=== PATIENT | female | born 1985 | race American Indian/Alaskan Native ===

== ENCOUNTER 2017-11-29 10:18 | Emergency (ER) | payer MEDICAID ==
[2017-11-29 10:30] VITALS: BP 136/89
[2017-11-29 14:54] LABS: Bacteria,Urine 1+ /HPF (Negative); Bilirubin,Urine NEG (Negative); Blood,Urine NEG (Negative); Color,Urine Yellow (Yellow); Mucus,Urine 2+ /HPF; Protein,Urine <15 mg/dL mg/dL (Negative); Urobilinogen,Urine < 2.0 mg/dL (<2.0)
[2017-11-29 16:03] LABS: BUN/Creatinine Ratio 14; Blood Urea Nitrogen 10 mg/dL (7-17); Calcium 8.8 mg/dL (8.4-10.2); Hemolysis Index 8
[2017-11-29 16:06] LABS: Amphetamine Screen,Urine PRESUMPTIVE NEGATIVE; Benzodiazepines Screen,Urine PRESUMPTIVE NEGATIVE; Cannabinoid Screen,Urine PRESUMPTIVE NEGATIVE; Cocaine Screen,Urine PRESUMPTIVE NEGATIVE; Methadone Screen,Urine PRESUMPTIVE NEGATIVE; Opiate Screen,Urine PRESUMPTIVE NEGATIVE
[2017-11-29 17:07] LABS: Basophils % (Auto) 0.3 % (0.0-1.8); Eosinophils % (Auto) 0.4 % (0.0-4.3); Hematocrit 37.2 % (30.3-42.9); Hemoglobin 12.2 gm/dl (10.1-14.3); Lymphocytes # (Auto) 1.9 K/mm3 (1.2-5.4); Lymphocytes % (Auto) 26.2 % (13.4-35.0); Mean Corpuscular HGB Conc 33 % (30-34); Mean Corpuscular Hemoglobin 28 pg (28-32); Mean Corpuscular Volume 86 fl (79-97); Monocytes # (Auto) 0.4 K/mm3 (0.0-0.8); Monocytes % (Auto) 5.4 % (0.0-7.3); Platelet Count 278 K/mm3 (140-440); Red Blood Count 4.34 M/mm3 (3.65-5.03)
== END 2017-11-29 20:27 | disposition left against medical advice (07) ==
LOC: ED 10:18
DX: R45.851 Suicidal ideations (principal); Z53.21 Procedure and treatment not carried out due to patient leaving prior to being seen by health care provider
CPT/HCPCS: 36415; 80048; 80307; 81001; 84703; 85025; G0480; 80320

== ENCOUNTER 2021-07-04 16:05 | Outpatient (CLI) | payer OTHER ==
[2021-07-04 17:03] LABS: Basophils % (Auto) 0.5 % (0.0-1.8); Eosinophils # (Auto) 0.1 K/mm3 (0.0-0.4); Eosinophils % (Auto) 0.8 % (0.0-4.3); Hematocrit 37.1 % (30.3-42.9); Hemoglobin 12.6 gm/dl (10.1-14.3); Lymphocytes # (Auto) 2.5 K/mm3 (1.2-5.4); Lymphocytes % (Auto) 28.1 % (13.4-35.0); Mean Corpuscular HGB Conc 34 % (30-34); Mean Corpuscular Volume 88 fl (79-97); Monocytes # (Auto) 0.4 K/mm3 (0.0-0.8); Monocytes % (Auto) 4.2 % (0.0-7.3); Platelet Count 274 K/mm3 (140-440); Red Blood Count 4.23 M/mm3 (3.65-5.03); Red Cell Distribution Width 13.4 % (13.2-15.2)
[2021-07-04 19:21] LABS: Alanine Aminotransferase 14 units/L (7-56); Albumin 4.3 g/dL (3.9-5); BUN/Creatinine Ratio 14; Blood Urea Nitrogen 11 mg/dL (7-17); Calcium 9.6 mg/dL (8.4-10.2); Chol/HDL Ratio 5.86 %; HDL Cholesterol 37 mg/dL (40-59); Hemolysis Index 3; Iron 28 ug/dL (37-170); LDL Cholesterol,Direct 128 mg/dL (50-130); Total Iron Binding Capacity 344 mcg/dL (250-450)
[2021-07-08 14:56] LABS: Vitamin D, 25-OH, D2 <4 ng/mL
== END 2021-07-04 16:06 | disposition home or self-care (01) ==
LOC: LAB 16:05
PROVIDERS: ATTEND Surgery
DX: Z01.812 Encounter for preprocedural laboratory examination (principal); Z13.1 Encounter for screening for diabetes mellitus; E55.9 Vitamin D deficiency, unspecified; K30 Functional dyspepsia; E66.01 Morbid (severe) obesity due to excess calories
CPT/HCPCS: 36415; 80053; 80061; 82306; 82607; 82728; 83036; 83550; 84443; 85025; 85730

== ENCOUNTER 2021-11-25 11:00 | Outpatient (CLI) | payer OTHER | END 2021-11-25 11:01 | disposition home or self-care (01) | LOC: SLR 11:00 | PROVIDERS: ATTEND Surgery | DX: G47.33 Obstructive sleep apnea (adult) (pediatric) (principal) | CPT/HCPCS: 95810 ==

== ENCOUNTER 2021-11-29 06:39 | Day surgery (SDC) | payer OTHER ==
[2021-11-29] MEDS ORDERED: SODIUM CHLORIDE 0.9% 1000 ML 1,000 ML IV SCH (07:00)
[2021-11-29] MEDS ORDERED: WATER FOR IRRIG STERILE 1,000 ML BOTTLE ONE (07:07)
[2021-11-29] MEDS ORDERED: WATER FOR IRRIG STERILE 250 ML BOTTLE IR ONE (07:07)
--- NOTE | 2021-11-29 07:48 | Anesthesia Day of Surgery ---
Anesthesia Day of Surgery - Day of Surgery Patient Examined: Yes Patient H&P Reviewed: Yes Patient is NPO: Yes
--- NOTE | 2021-11-29 07:48 | Anesthesia Consultation ---
Anesthesia Consult and Med Hx - Airway Anesthetic Teeth Evaluation: Good ROM Head & Neck: Adequate Mental/Hyoid Distance: Adequate Mallampati Class: Class I Intubation Access Assessment: Good - Pulmonary Exam CTA: Yes - Cardiac Exam Cardiac Exam: RRR - Pre-Operative Health Status ASA Pre-Surgery Classification: ASA3 Proposed Anesthetic Plan: MAC - Pulmonary Hx Smoking: No Hx Asthma: No Hx Sleep Apnea: Yes - Cardiovascular System Hx Hypertension: Yes - Central Nervous System Hx Neuromuscular Disorder: No - Gastrointestinal Hx Gastroesophageal Reflux Disease: Yes - Endocrine Hx Renal Disease: No Hx Liver Disease: No Hx Non-Insulin Dependent Diabetes: No (prediabetes - no meds) Hx Hypothyroidism: Yes - Hematic Hx Anemia: No Hx Sickle Cell Disease: No - Other Systems Hx Alcohol Use: No Hx Substance Use: No Hx Cancer: No Hx Obesity: Yes - Additional Comments Anesthesia Medical History Comments: no hx of anesthetic complications
--- NOTE | 2021-11-29 08:17 | Discharge Summary ---
Providers - Providers Date of Admission: 11/29/2021 Date of discharge: 11/29/21 Attending physician: HOWARD STALLINGS MD Primary care physician: HEYDI SHRESTHA Hospitalization Reason for admission: pre-op egd Condition: Good Procedures: egd w/ bx Hospital course: Pt presented for a pre-op EGD as part of planning for up coming bariatric surgery. Procedure was uneventful and pt recovered well and was discharged to home. Disposition: 01 HOME / SELF CARE / HOMELESS Final Discharge Diagnosis (Prints w/discharge instructions): morbid obesity, gerd Core Measure Documentation - Palliative Care Palliative Care/ Comfort Measures: Not Applicable - Core Measures Any of the following diagnoses?: none Exam - Physical Exam Narrative exam: unchanged from pre-op Plan Activity: advance as tolerated Diet: low carbohydrate Follow up with: HEYDI SHRESTHA MD [Primary Care Provider] - 7 Days
--- NOTE | 2021-11-29 08:19 | Operative Report ---
Operative Report Operative Report: DATE: 11/29/2021 SURGERY: Upper endoscopy. SURGEON: Nivia Patel M.D. PROCEDURE: EGD with biopsy PRE OP DX: morbid obesity, GERD POST OP DX: morbid obesity, GERD TYPE OF ANESTHESIA: MAC. ESTIMATED BLOOD LOSS: None. COMPLICATIONS: None. SPECIMENS REMOVED: antral biopsy FINDINGS: 1. Small hiatal hernia. 2. mild antral gastritis INDICATIONS:INDICATION FOR PROCEDURE: Patient is a 36-year-old female with a long history of morbid obesity. She is planned to have a weight loss procedure and is here for preoperative planning EGD. PROCEDURE DETAILS: After consent was reviewed, patient was taken back to the operating room where patient was placed in the left lateral decubitus position and a bite block was placed in the mouth. After a time-out was called, MAC anesthesia was initiated. I then passed the endoscope into her oropharynx, into her esophagus, visualized the entire esophagus, which was all within normal limits. Z-line was noted to about 35cm from incisors. I then visualized the stomach and the first portion of the duodenum and there were no abnormalities I could clearly visualize except for antral gastritis. A cold forceps biopsy of the antrum was taken and will be sent to pathology to evaluate for H.pylori. I then retroflexed the scope in the stomach and visualized the hiatus and I could see a small hiatal hernia. I then desufflated the stomach and removed the endoscope. Patient tolerated procedure well and was transferred to recovery room in good and stable condition.
[2021-11-29] MEDS ORDERED: propofoL 200 MG/20 ML VIAL IV ONE (08:31)
[2021-11-29] MEDS ORDERED: LIDOCAINE MPF (2%) 20 MG/1 ML VIAL 5 ML ONE (08:31)
--- NOTE | 2021-11-29 13:37 | Post Anesthesia Evaluation ---
- Post Anesthesia Evaluation Patient Participated: Yes Airway Patent: Yes Stable Respiratory Function: Yes Nausea/Vomiting: No Temp > 96.8F: Yes Pain Manageable: Yes Adequeate Hydration: Yes Anesthesia Complications: No Block Receding Appropriately: Not Applicable Patient on Ventilator: No
[2021-11-29 14:03] VITALS: BP 111/66
== END 2021-11-29 09:30 | disposition home or self-care (01) ==
LOC: GIO 06:39
PROVIDERS: ATTEND Surgery
DX: K21.9 Gastro-esophageal reflux disease without esophagitis (principal); E66.01 Morbid (severe) obesity due to excess calories; K30 Functional dyspepsia; K44.9 Diaphragmatic hernia without obstruction or gangrene; K29.70 Gastritis, unspecified, without bleeding; K31.89 Other diseases of stomach and duodenum; I10 Essential (primary) hypertension; G47.30 Sleep apnea, unspecified; E11.9 Type 2 diabetes mellitus without complications; E03.9 Hypothyroidism, unspecified; F32.9 Major depressive disorder, single episode, unspecified; F41.9 Anxiety disorder, unspecified; Z88.2 Allergy status to sulfonamides; Z79.899 Other long term (current) drug therapy; Z68.41 Body mass index [BMI] 40.0-44.9, adult
CPT/HCPCS: 43239; 81025; 88305; 88342; J2704; J3490; J7030; J7120; Q0162

== ENCOUNTER 2022-03-03 13:16 | Outpatient (CLI) | payer OTHER ==
--- NOTE | 2021-11-02 09:35 | Fluoroscopy Report ---
BARIUM SWALLOW Indication: MORBID OBESITY. Technique: Single contrast barium technique utilized to evaluate the esophagus. FINDINGS: To begin the exam, swallowing was evaluated in the lateral position under direct fluorosco py. Swallowing was normal. No mucosal irregularity, mass, mass effect, or critical stenosis. There were no abnormal tertiary c ontractions as seen with dysmotility. A small sliding hiatal hernia measuring 2-3 cm in diameter was occasionally witnessed during this exam. No evidence for gastroesophageal reflux. IMPRESSION: Small sliding hiatal hernia, otherwise, unremarkable exam. Fluoroscopic time: 1.5 minutes Number of fluoroscopic images: 33 Signer Name: Haris Lyn Jr, MD Signed: 11/02/2021 9:30 AM Workstation Name: [id number]
[2022-03-03 14:33] LABS: Basophils % (Auto) 0.5 % (0.0-1.8); Eosinophils % (Auto) 0.4 % (0.0-4.3); Hematocrit 40.4 % (30.3-42.9); Hemoglobin 13.3 gm/dl (10.1-14.3); Lymphocytes # (Auto) 2.2 K/mm3 (1.2-5.4); Lymphocytes % (Auto) 29.2 % (13.4-35.0); Mean Corpuscular HGB Conc 33 % (30-34); Mean Corpuscular Volume 89 fl (79-97); Monocytes # (Auto) 0.4 K/mm3 (0.0-0.8); Monocytes % (Auto) 5.2 % (0.0-7.3); Red Blood Count 4.56 M/mm3 (3.65-5.03); Red Cell Distribution Width 13.3 % (13.2-15.2)
[2022-03-03 14:52] LABS: Amphetamine Screen,Urine Negative; Benzodiazepines Screen,Urine Negative; Cannabinoid Screen,Urine Negative; Cocaine Screen,Urine Negative; Methadone Screen,Urine Negative; Opiate Screen,Urine Negative
[2022-03-03 14:56] LABS: Alanine Aminotransferase 20 units/L (7-56); Albumin 4.4 g/dL (3.9-5); Blood Urea Nitrogen 12 mg/dL (7-17); Calcium 9.4 mg/dL (8.4-10.2); Hemolysis Index 3; Iron 59 ug/dL (37-170); Total Iron Binding Capacity 341 mcg/dL (250-450)
[2022-03-03 15:20] LABS: BUN/Creatinine Ratio 17
[2022-03-03 15:21] LABS: Platelet Count 310 K/mm3 (140-440)
[2022-03-03 15:25] LABS: HCG Qualitative,Urine Negative (Negative)
== END 2022-03-03 13:17 | disposition home or self-care (01) ==
LOC: FLUORO 13:16
PROVIDERS: ATTEND Surgery
DX: K44.9 Diaphragmatic hernia without obstruction or gangrene (principal); E66.01 Morbid (severe) obesity due to excess calories; E55.9 Vitamin D deficiency, unspecified
CPT/HCPCS: 36415; 74220; 80053; 80307; 81025; 82607; 82652; 82728; 83036; 83550; 84443; 85025; 85730

== ENCOUNTER 2022-03-10 13:05 | Outpatient (CLI) | payer OTHER ==
[2022-03-10 13:50] LABS: INR 0.88 (0.87-1.13); Partial Thromboplastin Time 28.1 Sec. (24.2-36.6)
== END 2022-03-10 13:06 | disposition home or self-care (01) ==
LOC: LAB 13:05
PROVIDERS: ATTEND Surgery
DX: R79.1 Abnormal coagulation profile (principal); E66.01 Morbid (severe) obesity due to excess calories
CPT/HCPCS: 36415; 85610; 85730

== ENCOUNTER 2022-04-10 08:59 | Inpatient (IN) | payer OTHER ==
[2022-04-05 10:02] LABS: Hematocrit 38.4 % (30.3-42.9); Hemoglobin 12.8 gm/dl (10.1-14.3); Mean Corpuscular HGB Conc 33 % (30-34); Mean Corpuscular Volume 88 fl (79-97); Platelet Count 263 K/mm3 (140-440); Red Blood Count 4.37 M/mm3 (3.65-5.03); Red Cell Distribution Width 13.3 % (13.2-15.2)
[2022-04-05 10:11] LABS: INR 0.93 (0.87-1.13)
--- NOTE | 2022-04-05 10:20 | Anesthesia Consultation ---
Anesthesia Consult and Med Hx Date of service: 04/10/22 - Airway Anesthetic Teeth Evaluation: Good ROM Head & Neck: Adequate Mental/Hyoid Distance: Adequate Mallampati Class: Class II Intubation Access Assessment: Probably Good - Pulmonary Exam CTA: Yes - Cardiac Exam Cardiac Exam: RRR - Pre-Operative Health Status ASA Pre-Surgery Classification: ASA3 Proposed Anesthetic Plan: General - Pulmonary Hx Smoking: No Hx Respiratory Symptoms: No Hx Sleep Apnea: No (negative sleep study) - Cardiovascular System Hx Hypertension: Yes Hx Heart Attack/AMI: No (normal stress test) - Central Nervous System CVA: No Hx Back Pain: Yes Hx Psychiatric Problems: Yes (anxiety/depression) - Gastrointestinal Hx Gastroesophageal Reflux Disease: Yes - Endocrine Hx Renal Disease: No Hx Liver Disease: No Hx Insulin Dependent Diabetes: No Hx Non-Insulin Dependent Diabetes: No (pre-DM (no meds)) Hx Hyperthyroidism: Yes - Other Systems Hx Obesity: Yes (BMI 41.5) - Additional Comments Anesthesia Medical History Comments: No hx anesthetic complications. Preop sleep study and stress test reviewed. Patient reports having preop EKG done and this is referenced in medical eval note; EKG requested. Otherwise, may need DOS EKG if not found.
[2022-04-05 10:23] LABS: Alanine Aminotransferase 15 units/L (7-56); Albumin 4.2 g/dL (3.9-5); Blood Urea Nitrogen 16 mg/dL (7-17); Calcium 9.2 mg/dL (8.4-10.2); Hemolysis Index 9
[2022-04-05 10:47] LABS: BUN/Creatinine Ratio 23
[~2022-04-10 08:59] MED LIST: ACETAMINOPHEN IV 1,000 MG/100 ML BOTTLE IV NR; ENOXAPARIN 40 MG/0.4 ML INJ SUB-Q NR; GABAPENTIN 500 MG/10 ML ORAL LIQD PO NR; LACTATED RINGERS 1,000 ML IV SCH; MIDAZOLAM 2 MG/2 ML INJ IV NR; SCOPOLAMINE TRANSDERMAL PATCH 72 HR TD NR; methOCARBAMOL 1,000 MG in SODIUM CHLORIDE 0.9% 250ML 250 ML IV SCH; metroNIDAZOLE/NS 500 MG/100 ML 500 MG/100 ML BAG IV NR
[2022-04-10] MEDS ORDERED: ENOXAPARIN 40 MG/0.4 ML INJ SUB-Q ONE (10:20)
--- NOTE | 2022-04-10 10:50 | Anesthesia Day of Surgery ---
Anesthesia Day of Surgery - Day of Surgery Patient Examined: Yes Patient H&P Reviewed: Yes Patient is NPO: Yes
[2022-04-10] MEDS ORDERED: HYDROmorphone 0.5 MG/0.5 ML INJ IV PRN ×4 (11:00→16:01)
[2022-04-10] MEDS ORDERED: ONDANSETRON 4 MG/2 ML INJ IV PRN (11:00)
[2022-04-10] MEDS ORDERED: MAGNESIUM SULFATE 4 GM/100 ML BAG IV ONE (13:17)
[2022-04-10] MEDS ORDERED: LIDOCAINE 2%/EPINEPHRINE 1:200,000 VIAL (20 ML) INFILTRATI ONE (13:19)
[2022-04-10] MEDS ORDERED: BUPIVACAINE/PF (0.25%) 2.5 MG/ML 30 ML VIAL INFILTRATI ONE ×2 (13:19→14:42)
[2022-04-10] MEDS ORDERED: LIDOCAINE MPF (2%) 20 MG/1 ML VIAL 5 ML ONE (13:25)
[2022-04-10] MEDS ORDERED: ONDANSETRON 4 MG/2 ML INJ ONE (13:25)
[2022-04-10] MEDS ORDERED: SODIUM CHLORIDE P/F VIAL 10 ML 10 ML ONE (13:25)
[2022-04-10] MEDS ORDERED: ROCURONIUM 50 MG/5 ML INJ IV ONE (13:25)
[2022-04-10] MEDS ORDERED: KETAMINE/STERILE WATER 50 MG/ML SYRINGE ONE (13:31)
[2022-04-10] MEDS ORDERED: metroNIDAZOLE/NS 500 MG/100 ML 500 MG/100 ML BAG IV ONE (13:42)
[2022-04-10] MEDS ORDERED: SODIUM CHLORIDE 0.9% IRR 1,500 ML BOTTLE IR ONE (14:42)
[2022-04-10] MEDS ORDERED: LIDOCAINE 2%/EPINEPHRINE 1:100,000 VIAL (20 ML) INFILTRATI ONE (14:42)
[2022-04-10] MEDS ORDERED: SODIUM CHLORIDE 0.9% IRRIG SOLN 2000 ML IR ONE (15:02)
[2022-04-10] MEDS ORDERED: hydrALAZINE 20 MG/1 ML INJ IV PRN (16:01)
[2022-04-10] MEDS ORDERED: METOCLOPRAMIDE 10 MG/2 ML INJ IV PRN (16:01)
[2022-04-10] MEDS ORDERED: LACTATED RINGERS 1,000 ML IV SCH (16:15)
--- NOTE | 2022-04-10 16:23 | Operative Report ---
Operative Report Operative Report: DATE:04/10/2022 Surgeon: Nivia Patel MD [employer] surgeon: Ray Barry CSA MD Pre-op Dx: morbid obesity Post-op Dx: morbid obesity Procedure: 1. laparoscopic sleeve gastrectomy, Anesthesia: GETA, TAP block EBL: <10ml Specimen: gastric remnant Complication: none immediate Indication: 36 year old female with a history of morbid obesity . Pt is here for sleeve gastrectomy for weight loss to achieve healthier weight and improve or resolve her co-morbidities. She expressed understanding of the risks and benefits. PROCEDURE IN DETAIL: After consent was reviewed, patient was taken back to the operating room, where patient was placed supine on the bed with both arms out. The patient's legs were doubly strapped to the bed. Patient had a foot board in place. Patient had a body warmer placed by anesthesia. General anesthesia was induced with successful endotracheal intubation. Patient was then prepped and draped in normal sterile surgical fashion. After a time-out was called, I made a stab incision in the left subcostal area and placed a Veress needle through this incision and insufflated the abdomen to 15 mmHg pressure. I then counted down a handsbreadth below the xiphoid process in the midline and slightly left lateral injected local anesthetic and made about 1 cm transverse incision. I then used a 5-mm Optiview trocar to enter into the abdomen. There was no gross injury to any intra-abdominal structures. I then placed a 30-degree scope through this port and inspected the abdomen. I then placed a 5-mm port in the right upper quadrant, and 1 epigastric area below the costovertebral angle. I then placed a 15-mm port about a handsbreadth in the right mid abdomen. After which a 5mm port was placed in left upper quadrant port along the anterior axillary line in a similar fashion. A liver retractor was placed to the epigastric port to elevate the left lateral lobe and liver. The anterior gastric fat pad was excised. Starting approximately 6 cm proximal to the pylorus, using a Enseal device the short gastrics were taken all the way to the left justo. Once the lateral portion of the stomach was mobile anesthesia passed a 40 Turkmen bougie along the medial aspect to act as a stent. Using serial firings of endoscopic stapler to gold, followed by 4 blue, the lateral portion of the stomach was transected making sure to did not close to the 2 cm to the incisura. All staple loads were supported with Ethicon buttress strips. The sleeve stomach was seen to be witho ut kink obstruction or twisting. The pressure was decreased to 10 mmHg. The staple line was inspected for approximately 5 minutes. There was an area of staple line at the location of the second staple fire that was more oozy than usual and appeared to have a jagged edge. That area was oversewn with surgiddac. An air leak test was performed with an endoscope and was negative for leak. Vistaseal was then sprayed along the entirety of the staple line. The liver retractor was removed. This was after the gastric remnant was grasped and pulled into the 15 mm trocar site. The stomach was extracted via the 15 mm trocar site. After the fascia had to be stretched with a Lida clamp to easily remove the stomach, the fascia was closed using a michael brock device at the level of the fascia with an 0 PDS. trocars were removed under direct visualization. A TAP block was performed in transverse abdominis plane at the mid axillary line bilaterally using 60cc of 0.25% marcaine. All skin incisions were closed with 4-0 Monocryl followed by Dermabond. Patient was awoken, extubated, and taken to recovery stable condition. All counts were correct.
[2022-04-10] MEDS: KETOROLAC 30 MG/1 ML INJ IV SCH ×2 (16:45→23:25)
[2022-04-10] MEDS: SIMETHICONE 80 MG CHEW TAB PO PRN (16:45)
[2022-04-10] MEDS: PANTOPRAZOLE 40 MG INJ IV SCH (16:45)
[2022-04-10] MEDS: ONDANSETRON 4 MG/2 ML INJ IV PRN (16:45)
[2022-04-10] MEDS ORDERED: metroNIDAZOLE/NS 500 MG/100 ML 500 MG/100 ML BAG IV SCH (17:00)
[2022-04-10] MEDS ORDERED: ceFAZolin/NS 1 GM/50 ML 1 GM/50 ML BAG IV SCH (17:00)
[2022-04-10] MEDS ORDERED: SIMETHICONE 40 MG/0.6 ML ORAL DROP 30ML PO ONE (17:29)
[2022-04-10] MEDS: metroNIDAZOLE/NS 500 MG/100 ML 500 MG/100 ML BAG IV SCH (21:02)
[2022-04-10] MEDS: ceFAZolin/NS 1 GM/50 ML 1 GM/50 ML BAG IV SCH (22:30)
[2022-04-10] MEDS: methIMAzole 5 MG TAB PO SCH (22:31)
[2022-04-10] MEDS: DULoxetine 30 MG CAP PO SCH (22:34)
[2022-04-11] MEDS: ACETAMINOPHEN IV 1,000 MG/100 ML BOTTLE IV SCH ×3 (02:45→02:50)
[2022-04-11] MEDS: metroNIDAZOLE/NS 500 MG/100 ML 500 MG/100 ML BAG IV SCH ×2 (05:21→14:11)
[2022-04-11] MEDS: ceFAZolin/NS 1 GM/50 ML 1 GM/50 ML BAG IV SCH (05:23)
--- OUTSIDE RECORDS SUMMARY | 2022-04-11 06:01 | External Medical Summary ---
:1985 Author Organization [facility], [facility] Address [address] [place] [address] Care Team Providers Name Role Phone Amanda Unavailable [phone] PROBLEMS Type Condition ICD9-CM [id number] Onset Condition W/U Status Risk SNOM ED Notes Code Code Dates Status Code Problem Morbid E66.2 Active confirmed 870705250 (severe) obesity with alveolar hypoventilati on Problem Morbid E66.01 Active confirmed 852797580 (severe) obesity due to excess calories Problem Hypothyroidis E03.9 Active confirmed 696618 08 m, unspecified Problem Dietary Z71.3 Active confirmed 804777116 counseling and surveillance Problem Essential I10 Active confirmed 38456948 (primary) hypertension Problem Functional K30 Active confirmed 3581893 dyspepsia Problem Sleep G47.9 Active confirmed 25208488 disorder, unspecified ALLERGIES Allergen (clinical drug Drug/Non Drug Allergy Reaction Allergy Type Onset Date Status ingredient) documented on EMR Sulfasalazine Sulfa Antibiotics Unknown Drug Allergy Ac tive ENCOUNTERS from 1983 to 2022-04-10 Encounter Location Date Provider Diagnosis [facility] Mar, Nivia Patel Morbi d (severe) [address] obesity due to excess of [place] calorie s E66.01 ; [address] Hypothyroidism, unspecified E03 .9 and Essential (prim johanna) hypertension I1 0 IMMUNIZATIONS No Information SOCIAL HISTORY Sex Assigned At : Social History Observation Description Sex Assigned At Unknown REASON FOR REFERRAL from 1985 to 2022-04-10 Reason Gastric Sleeve Diagnosis 1 Morbid (severe) obesity due to excess calories (E66.01) Diagnosis 2 Hypothyroidism, unspecified (E03.9) Diagnosis 3 Essential (primary) hyperten yoseph (I10) Diagnosis 4 Functional dyspepsia (K30) Diagnosis 5 Sleep disorder, unspecified (G47.9) Diagnosis 6 Gastro-esophageal reflux dis ease without esophagitis (K21.9) Diagnosis 7 Low back pain (M54.5) Referral Organization [facility] Referring Provider First Name Princesslila Referring Provider Last Name Amanda Referring Provider Specialty Surgery Referred Provider [facility], - Referral Priority Routine VITAL SIGNS Height 62 in Mar, Weight 234.5 lbs Mar, Temperature 97.3 degrees Fahrenheit Mar, BMI 42.89 kg/m2 Mar, Blood pressure systolic 128 mm Hg Mar, Blood pressure diastolic 86 mm Hg Mar, MEDICATIONS Medication SIG (Take, Route, Notes Start Date End Date Status Frequency, Duration) methIMAzole 5 MG 1 tablet Orally Once a Active day for 30 day(s) Omeprazole 40 MG 1 capsule 30 minutes Mar, Active before morning meal Orally Once a day for 30 day(s) Montelukast Sodium 10 MG 1 tablet Orally Once a Active day for 30 day(s) Levothyroxine Sodium 25 MCG 1 tablet in the Active morning on an empty stomach Orally Once a day for 30 day(s) Cyclobenzaprine HCl 10 MG 1 tablet at bedtime as Active needed Orally Once a day for 30 day(s) Nortriptyline HCl 10 MG 1 capsule Orally Once Active a day for 30 day(s) valACYclovir HCl 500 MG 1 tablet Orally Once a Active day for 10 day(s) Vitamin D (Ergocalciferol) 1 capsule Orally for Active 60805 UNIT 30 day(s) Ibuprofen 800 MG 1 tablet with food or Active milk as needed Orally every 8 hrs Gabapentin 300 MG 1 capsule Orally Once Active a day for 30 day(s) SUMAtriptan 5 MG/ACT 1 spray at onset of Active headache in one nostril may repeat dose after 2 hours as needed Nasally Once a day for 1 day(s) DULoxetine HCl 30 MG 1 capsule Orally Once Active a day for 30 day(s) Ondansetron 4 MG 1-2 tablet on the Mar, Active tongue and allow to dissolve Orally q 4-6 hours prn nausea for 30 day(s) Omeprazole 20 MG 1 tablet 30 minutes Active before morning meal Orally twice a day (bid) for 10 days Ibuprofen 800 mg #60 800 mg one tablet orally Active every 6 hours prn pain amLODIPine Besylate 10 MG 1 tablet Orally Once a Active day for 30 day(s) PROCEDURES No Information RESULTS No Results REASON FOR VISIT PreOp Sleeve MEDICAL (GENERAL) HISTORY Type Description Date Medical History back pain Medical History htn Medical History anxiety and depression Medical History hypothyroid Surgical History tubal ligation 2006 Goals Section No Information Health Concerns No Information MEDICAL EQUIPMENT No Information MENTAL STATUS No Information FUNCTIONAL STATUS No Information ASSESSMENTS Encounter Date Diagnosis Assessment Notes Treatment Notes Treatm ent Clinical Notes Mar, Morbid (severe) An hour was spen t with patient reinforcing diet, vitamin requirements and lifestyle education, A quiz was administered and reviewed to verify understanding of intended procedure and post operative care. obesity due to Consent forms w ere reviewed with patient and signed answering all questions, Pre-operative labs were ordered. excess calories (ICD-10 - E66.01) Mar, Hypothyroidism, continue tx with pcp unspecified (ICD-10 - E03.9) Mar, Essential (primary) Should resol ve or greatly improve with weight loss after bariatric surgery hypertension (ICD-10 - I10) PLAN OF TREATMENT Medication Medication Name Sig Start Date Stop Date Omeprazole 40 MG 1 capsule 30 minutes before morning meal Mar Orally Once a day for 30 day(s) Ondansetron 4 MG 1-2 tablet on the tongue and allow to Mar, 022 dissolve Orally q 4-6 hours prn nausea for 30 day(s) Treatment Notes Assessment Notes Clinical Notes Morbid (severe) obesity due to An hour was spent with patient reinforcing diet, vitamin requirements and lifestyle education, A quiz was administered and reviewed to verify understanding of intended procedure and post operative care. excess calories Consent forms were reviewed with patient and signed answering all questions, Pre-operative labs were ordered. Hypothyroidism, unspecified continue tx with pcp Essential (primary) hypertension Should resolve or gre atly improve with weight loss after bariatric surgery Referrals Referral Date Details Gastric Sleeve Next Appt Details for surgery Reason: Provider Name:Nivia Patel, 2021-07-2 5 10:00:00 AM, [address] [facility], [place], [place], [address], Insurance Providers Payer Name Payer Payer Insured Patient Coverage Coverage Subscriber Group Address Phone Name Relationship Start End Date Number Nu mber to Insured Date [address] FREDA HASKINS self [id number] [facility] CLAIMS [id number] [address] [place] [id number]
[2022-04-11 06:32] LABS: Basophils % (Auto) 0.2 % (0.0-1.8); Hematocrit 37.6 % (30.3-42.9); Hemoglobin 12.4 gm/dl (10.1-14.3); Lymphocytes % (Auto) 14.1 % (13.4-35.0); Mean Corpuscular HGB Conc 33 % (30-34); Mean Corpuscular Volume 88 fl (79-97); Monocytes # (Auto) 0.3 K/mm3 (0.0-0.8); Monocytes % (Auto) 4.2 % (0.0-7.3); Platelet Count 295 K/mm3 (140-440); Red Blood Count 4.27 M/mm3 (3.65-5.03); Red Cell Distribution Width 13.3 % (13.2-15.2)
[2022-04-11 07:15] LABS: Alanine Aminotransferase 32 units/L (7-56); Albumin 3.8 g/dL (3.9-5); Blood Urea Nitrogen 7 mg/dL (7-17); Calcium 8.8 mg/dL (8.4-10.2); Hemolysis Index 5
[2022-04-11 07:24] LABS: BUN/Creatinine Ratio 10
[2022-04-11] MEDS: SIMETHICONE 80 MG CHEW TAB PO PRN ×2 (09:17→17:28)
[2022-04-11] MEDS: DULoxetine 30 MG CAP PO SCH ×2 (09:17→21:51)
[2022-04-11] MEDS: amLODIPine 10 MG TAB PO SCH (09:17)
[2022-04-11] MEDS: methIMAzole 5 MG TAB PO SCH ×2 (09:17→21:51)
[2022-04-11] MEDS: ENOXAPARIN 40 MG/0.4 ML INJ SUB-Q SCH (09:18)
[2022-04-11] MEDS: HYDROcodone/Acetaminophen 7.5-325MG-15ML ORAL LIQD PO PRN ×3 (09:18→21:50)
[2022-04-11] MEDS: PANTOPRAZOLE 40 MG INJ IV SCH (09:20)
--- NOTE | 2022-04-11 14:02 | Post Anesthesia Evaluation ---
- Post Anesthesia Evaluation Patient Participated: Yes Airway Patent: Yes Stable Respiratory Function: Yes Nausea/Vomiting: No Pain Manageable: Yes Adequeate Hydration: Yes Anesthesia Complications: No Block Receding Appropriately: Not Applicable Patient on Ventilator: No
[2022-04-11] MEDS: FLUTICASONE PROPIONATE NASAL SPRAY 16 GM NS SCH (14:13)
[2022-04-11] MEDS: KETOROLAC 30 MG/1 ML INJ IV SCH ×3 (14:13→21:55)
[2022-04-11] MEDS: ONDANSETRON 4 MG/2 ML INJ IV PRN (14:14)
--- NOTE | 2022-04-11 15:25 | Progress Note ---
Assessment and Plan Postop day #1 status post sleeve gastrectomy. Afebrile and stable with suboptimal oral intake. Encourage patient to take more frequent sips and if does well can be discharged tomorrow. Subjective Date of service: 04/11/22 Narrative: No acute events overnight. Patient denies any nausea vomiting but is slow to sufficient oral intake due to discomfort when feeling full. Patient says the pain is controlled although she was sore all night. Objective Vital Signs - 12hr 04/11/22 04/11/22 04/11/22 03:21 08:00 08:03 Temperature 98.3 F 98.2 F Pulse Rate 80 68 Respiratory 20 Rate Blood Pressure 139/75 128/76 O2 Sat by Pulse 98 97 99 Oximetry 04/11/22 04/11/22 08:42 12:01 Temperature 98.0 F Pulse Rate 72 Respiratory Rate Blood Pressure 125/80 O2 Sat by Pulse 100 97 Oximetry - General physical appearance well developed, no distress - Eyes PERRL - ENT no hearing loss - Respiratory normal expansion, normal respiratory effort - Abdomen soft, other (Incisions clean, dry, intact. Appropriate tender palpation.) - Psychiatric oriented to time, oriented to person, oriented to place - Labs 04/11/22 05:42 04/11/22 05:42 Diabetes panel 04/11/22 Range/Units 05:42 Sodium 136 L (137-145) mmol/L Potassium 4.0 (3.6-5.0) mmol/L Chloride 106.5 (98-107) mmol/L Carbon Dioxide 18 L (22-30) mmol/L BUN 7 (7-17) mg/dL Creatinine 0.7 (0.6-1.2) mg/dL Glucose 122 H (65-100) mg/dL Calcium 8.8 (8.4-10.2) mg/dL AST 49 H (5-40) units/L ALT 32 (7-56) units/L Alkaline Phosphatase 60 (35-129) units/L Total Protein 8.2 (6.3-8.2) g/dL Albumin 3.8 L (3.9-5) g/dL Calcium panel 04/11/22 Range/Units 05:42 Calcium 8.8 (8.4-10.2) mg/dL Albumin 3.8 L (3.9-5) g/dL Pituitary panel 04/11/22 Range/Units 05:42 Sodium 136 L (137-145) mmol/L Potassium 4.0 (3.6-5.0) mmol/L Chloride 106.5 (98-107) mmol/L Carbon Dioxide 18 L (22-30) mmol/L BUN 7 (7-17) mg/dL Creatinine 0.7 (0.6-1.2) mg/dL Glucose 122 H (65-100) mg/dL Calcium 8.8 (8.4-10.2) mg/dL Adrenal panel 04/11/22 Range/Units 05:42 Sodium 136 L (137-145) mmol/L Potassium 4.0 (3.6-5.0) mmol/L Chloride 106.5 (98-107) mmol/L Carbon Dioxide 18 L (22-30) mmol/L BUN 7 (7-17) mg/dL Creatinine 0.7 (0.6-1.2) mg/dL Glucose 122 H (65-100) mg/dL Calcium 8.8 (8.4-10.2) mg/dL Total Bilirubin 0.20 (0.1-1.2) mg/dL AST 49 H (5-40) units/L ALT 32 (7-56) units/L Alkaline Phosphatase 60 (35-129) units/L Total Protein 8.2 (6.3-8.2) g/dL Albumin 3.8 L (3.9-5) g/dL
[2022-04-12] MEDS: KETOROLAC 30 MG/1 ML INJ IV SCH ×3 (00:47→11:10)
[2022-04-12] MEDS: ACETAMINOPHEN IV 1,000 MG/100 ML BOTTLE IV SCH ×2 (00:48→00:49)
[2022-04-12] MEDS: HYDROcodone/Acetaminophen 7.5-325MG-15ML ORAL LIQD PO PRN (04:52)
[2022-04-12 08:17] LABS: Basophils % (Auto) 0.2 % (0.0-1.8); Eosinophils % (Auto) 0.1 % (0.0-4.3); Hematocrit 36.2 % (30.3-42.9); Lymphocytes # (Auto) 3.2 K/mm3 (1.2-5.4); Mean Corpuscular HGB Conc 33 % (30-34); Mean Corpuscular Volume 89 fl (79-97); Monocytes # (Auto) 0.5 K/mm3 (0.0-0.8); Monocytes % (Auto) 5.5 % (0.0-7.3); Platelet Count 284 K/mm3 (140-440); Red Blood Count 4.07 M/mm3 (3.65-5.03); Red Cell Distribution Width 13.2 % (13.2-15.2)
[2022-04-12 08:34] VITALS: BP 116/74
[2022-04-12 08:40] LABS: Alanine Aminotransferase 24 units/L (7-56); Albumin 3.8 g/dL (3.9-5); Blood Urea Nitrogen 7 mg/dL (7-17); Calcium 8.2 mg/dL (8.4-10.2); Hemolysis Index 13
[2022-04-12 08:48] LABS: BUN/Creatinine Ratio 10
[2022-04-12] MEDS: FLUTICASONE PROPIONATE NASAL SPRAY 16 GM NS SCH (09:04)
[2022-04-12] MEDS: PANTOPRAZOLE 40 MG INJ IV SCH (09:04)
[2022-04-12] MEDS: methIMAzole 5 MG TAB PO SCH (09:04)
[2022-04-12] MEDS: ENOXAPARIN 40 MG/0.4 ML INJ SUB-Q SCH (09:04)
[2022-04-12] MEDS: DULoxetine 30 MG CAP PO SCH (09:05)
[2022-04-12] MEDS: amLODIPine 10 MG TAB PO SCH (09:05)
--- NOTE | 2022-04-12 09:40 | Discharge Summary ---
Providers - Providers Date of Admission: 04/10/22 09:56 Date of discharge: 04/12/22 Attending physician: HOWARD STALLINGS MD 04/10/22 16:01 Physical Therapy Evaluation and Treat [CONS] Routine Comment: Reason For Exam: s/p bariatric surgery Hospitalization Reason for admission: s/p bariatric surgery Condition: Good Procedures: lap gastric sleeve Hospital course: Patient had an uneventful laparoscopic gastric sleeve for treatment of morbid obesity. Patient was recovering well and stayed afebrile and stable however was slow to oral intake due to feeling full. By postop day 2 she was drinking adequately and she maintains laboratory results and vital signs within acceptable limits showing no gross clinical signs of leak or bleeding. Patient was discharged on postop day #2 and she will follow-up in the office in 2 weeks. Disposition: 01 HOME / SELF CARE / HOMELESS Final Discharge Diagnosis (Prints w/discharge instructions): morbid obesity Core Measure Documentation - Palliative Care Palliative Care/ Comfort Measures: Not Applicable - Core Measures Any of the following diagnoses?: none Exam - Constitutional Vitals: Temp Pulse Resp BP Pulse Ox 98.5 F 90 18 116/74 98 04/12/22 08:29 04/12/22 08:29 04/12/22 04:52 04/12/22 08:29 04/12/22 08:29 General appearance: Present: no acute distress, obese - EENT Eyes: Present: PERRL - Respiratory Respiratory effort: normal - Cardiovascular Heart Sounds: Present: S1 & S2 - Extremities Extremities: no ischemia - Abdominal General gastrointestinal: Present: soft, non-tender, non-distended - Musculoskeletal Musculoskeletal: strength equal bilaterally - Psychiatric Psychiatric: appropriate mood/affect Plan Activity: advance as tolerated Diet: clear liquids, other Wound: open to air, keep clean and dry Follow up with: DR CLARICE [Other] - 7 Days
== END 2022-04-12 14:59 | disposition home or self-care (01) | DRG 621 ==
LOC: 3A 09:56 → 4A 16:30
PROVIDERS: ADMIT Surgery; ATTEND Surgery
PROC: 0DB64Z3 Excision of Stomach, Percutaneous Endoscopic Approach, Vertical (ICD-10-PCS; principal; 2022-04-10)
DX: E66.01 Morbid (severe) obesity due to excess calories (principal); K21.9 Gastro-esophageal reflux disease without esophagitis; I10 Essential (primary) hypertension; F41.9 Anxiety disorder, unspecified; Z68.41 Body mass index [BMI] 40.0-44.9, adult; E03.9 Hypothyroidism, unspecified; Z20.822 Contact with and (suspected) exposure to COVID-19
CPT/HCPCS: 36415; 80053; 84703; 85025; 85027; 85610; 85730; 88307; 88342; G0378; J3490; J7121; J7517; C9113; J0131; J0690; J1170; J1650; J1885; J2250; J2405; J2704; J2800; J3475; J7050; J7120; U0003

== ENCOUNTER 2022-05-10 10:32 | Outpatient (CLI) | payer OTHER ==
[2022-05-10 11:28] LABS: Basophils % (Auto) 0.3 % (0.0-1.8); Eosinophils % (Auto) 0.6 % (0.0-4.3); Hemoglobin 13.2 gm/dl (10.1-14.3); Lymphocytes % (Auto) 25.3 % (13.4-35.0); Mean Corpuscular HGB Conc 34 % (30-34); Mean Corpuscular Volume 89 fl (79-97); Monocytes # (Auto) 0.4 K/mm3 (0.0-0.8); Monocytes % (Auto) 5.3 % (0.0-7.3); Platelet Count 213 K/mm3 (140-440); Red Cell Distribution Width 13.9 % (13.2-15.2)
[2022-05-10 11:50] LABS: Alanine Aminotransferase 14 units/L (7-56); Albumin 4.5 g/dL (3.9-5); BUN/Creatinine Ratio 20; Blood Urea Nitrogen 16 mg/dL (7-17); Calcium 9.1 mg/dL (8.4-10.2); HDL Cholesterol 30 mg/dL (40-59); Hemolysis Index 16; Iron 69 ug/dL (37-170); LDL Cholesterol,Direct 97 mg/dL (50-130); Total Iron Binding Capacity 276 mcg/dL (250-450)
== END 2022-05-10 10:33 | disposition home or self-care (01) ==
LOC: LAB 10:32
PROVIDERS: ATTEND Surgery
DX: E03.9 Hypothyroidism, unspecified (principal); E66.01 Morbid (severe) obesity due to excess calories; K90.9 Intestinal malabsorption, unspecified; Z98.84 Bariatric surgery status
CPT/HCPCS: 36415; 80053; 80061; 82607; 82728; 83550; 83970; 84425; 84443; 85025